=== PATIENT | male | born 1960 | race Two or more races ===

== ENCOUNTER 2021-03-18 09:50 | Outpatient (CLI) | payer BC ==
[~2021-03-18] VITALS: Ht 185.4 cm; Wt 93.0 kg
[2021-03-18] MEDS ORDERED: FA/M1TAB PO (10:28)
[2021-03-18] MEDS ORDERED: CHOL400T57 PO (10:28)
[2021-03-18] MEDS ORDERED: ASCO-283 PO (10:28)
[2021-03-18] MEDS ORDERED: [UNRECOGNIZED DRUG - OTHER] PO (10:28)
[2021-03-18] MEDS ORDERED: CETI-194 PO (10:28)
[2021-03-18] MEDS ORDERED: LOSA50TA3 PO (10:28)
[2021-03-18] MEDS ORDERED: OMEG10006 PO (10:28)
[2021-03-18] MEDS ORDERED: ATOR40TA PO (10:28)
[2021-03-18] MEDS ORDERED: LORA10TA7 PO (10:28)
[2021-03-18] MEDS ORDERED: VITA-268 PO (10:28)
[2021-03-18 10:34] LABS: BASOPHILS # (AUTO) 0.1 X10'3 (0-0.2); BASOPHILS % (AUTO) 1.2 % (0-1); EOSINOPHILS # (AUTO) 0.1 X10'3 (0-0.9); EOSINOPHILS % (AUTO) 2.7 % (0-6); LYMPHOCYTES # (AUTO) 0.9 X10'3 (1.1-4.8); LYMPHOCYTES % (AUTO) 19.7 % (21-51); MEAN CORPUSCULAR HEMOGLOBIN 30.4 PG (27.0-31.0); MEAN CORPUSCULAR HGB CONC 33.6 g/dL (33.0-36.5); MEAN CORPUSCULAR VOLUME 90.2 FL (78-98); MEAN PLATELET VOLUME 8.1 FL (7.4-10.4); MONOCYTES # (AUTO) 1.1 X10'3 (0-0.9); MONOCYTES % (AUTO) 23.6 % (2-12); NEUTROPHILS # (AUTO) 2.4 X10'3 (1.8-7.7); NEUTROPHILS % (AUTO) 52.8 % (42-75); PRE OP HEMATOCRIT 44.9 % (42.0-52.0); PRE OP HEMOGLOBIN 15.1 g/dL (14.0-17.9); PRE OP PLATELET COUNT 198 X10'3 (140-440); RED BLOOD COUNT 4.98 X10'6 (4.70-6.10); RED CELL DISTRIBUTION WIDTH 13.1 % (11.5-14.5)
[2021-03-18 10:47] LABS: PRE OP PROTIME 10.6 SECONDS (9.0-12.0)
[2021-03-18 10:49] LABS: ALBUMIN/GLOBULIN RATIO 1.1 (1.1-1.5); ALKALINE PHOSPHATASE 88 IU/L (46-116); BLOOD UREA NITROGEN 18 MG/DL (7-18); BUN/CREATININE RATIO 17.5 (5.4-32.0); CALCIUM 8.4 MG/DL (8.5-10.1); CHLORIDE 105 MMOL/L (99-107); CREATININE 1.03 MG/DL (0.60-1.10); PRE OP ALT 37 U/L (30-65); PRE OP ANION GAP 7 (8-16); PRE OP AST 26 U/L (10-37); PRE OP BILIRUB, TOTAL 0.4 MG/DL (0.0-1.0); PRE OP GLUCOSE 92 MG/DL (70-104); PRE OP POTASSIUM 4.1 MMOL/L (3.4-5.1); PRE OP SODIUM 142 MMOL/L (135-145); TOTAL CARBON DIOXIDE 29.6 MMOL/L (24-32); TOTAL PROTEIN 7.7 G/DL (6.4-8.2); eGFR 74 ML/MIN
[2021-03-18 10:55] LABS: LARGE PLATELETS FEW; PLATELET ESTIMATE NORMAL; TOTAL CELLS COUNTED 100
[2021-03-23] MEDS ORDERED: ringers solution, lacted 1,000 ML IV SCH (05:00)
[2021-03-23] MEDS ORDERED: diazepam 5mg tablet PO PRN (05:30)
[2021-03-23] MEDS ORDERED: famotidine 20mg tablet PO ONE (05:30)
[2021-03-23] MEDS ORDERED: oxymetazoline 15 ML nasal spray NS PRN (05:30)
== END 2021-03-18 23:59 | disposition home or self-care (01) ==
LOC: PRE-OP 09:50 → EDSTATUS 03-23 08:00
PROVIDERS: ATTEND Otolaryngology
DX: Z01.818 Encounter for other preprocedural examination (principal); J34.89 Other specified disorders of nose and nasal sinuses; J34.3 Hypertrophy of nasal turbinates; I10 Essential (primary) hypertension; Z20.822 Contact with and (suspected) exposure to COVID-19; Z72.89 Other problems related to lifestyle; Z79.899 Other long term (current) drug therapy; Z98.890 Other specified postprocedural states; Z79.01 Long term (current) use of anticoagulants
CPT/HCPCS: 36415; 80053; 85025; 85576; 85610; 85730; 93005; U0003; U0005; 85007; J7120

== ENCOUNTER 2021-04-27 09:07 | Day surgery (SDC) | payer BC ==
[2021-04-22 11:05] LABS: BASOPHILS # (AUTO) 0.1 X10'3 (0-0.2); EOSINOPHILS # (AUTO) 0.2 X10'3 (0-0.9); EOSINOPHILS % (AUTO) 3.5 % (0-6); LYMPHOCYTES # (AUTO) 1.5 X10'3 (1.1-4.8); NEUTROPHILS # (AUTO) 4.3 X10'3 (1.8-7.7)
[2021-04-22 11:09] LABS: BASOPHILS % (AUTO) 1.2 % (0-1); LYMPHOCYTES % (AUTO) 21.9 % (21-51); MEAN CORPUSCULAR HEMOGLOBIN 30.2 PG (27.0-31.0); MEAN CORPUSCULAR HGB CONC 34.1 g/dL (33.0-36.5); MEAN CORPUSCULAR VOLUME 88.5 FL (78-98); MEAN PLATELET VOLUME 9.2 FL (7.4-10.4); MONOCYTES # (AUTO) 0.8 X10'3 (0-0.9); MONOCYTES % (AUTO) 11.6 % (2-12); NEUTROPHILS % (AUTO) 61.8 % (42-75); PRE OP PLATELET COUNT 201 X10'3 (140-440); RED BLOOD COUNT 4.97 X10'6 (4.70-6.10); RED CELL DISTRIBUTION WIDTH 13.1 % (11.5-14.5)
[2021-04-22 11:12] LABS: PRE OP PROTIME 10.4 SECONDS (9.0-12.0)
[2021-04-22 11:16] LABS: ALBUMIN 3.8 G/DL (3.4-5.0); ALKALINE PHOSPHATASE 99 IU/L (46-116); BLOOD UREA NITROGEN 15 MG/DL (7-18); CALCIUM 8.4 MG/DL (8.5-10.1); CHLORIDE 107 MMOL/L (99-107); CREATININE 0.94 MG/DL (0.60-1.10); PRE OP ALT 71 U/L (30-65); PRE OP ANION GAP 10 (8-16); PRE OP AST 45 U/L (10-37); PRE OP BILIRUB, TOTAL 0.3 MG/DL (0.0-1.0); PRE OP GLUCOSE 96 MG/DL (70-104); PRE OP POTASSIUM 4.3 MMOL/L (3.4-5.1); PRE OP SODIUM 143 MMOL/L (135-145); TOTAL CARBON DIOXIDE 26.4 MMOL/L (24-32); TOTAL PROTEIN 7.6 G/DL (6.4-8.2); eGFR 82 ML/MIN
[~2021-04-27] VITALS: Ht 185.4 cm; Wt 91.5 kg
[2021-04-27] VITALS (7 sets, daily range): BP systolic 147–171; BP diastolic 80–90
[~2021-04-27 09:07] MED LIST: ASCO-283 PO; ATOR40TA PO; CETI-194 PO; CHOL400T57 PO; FA/M1TAB PO; LIDOCAINE 1%/EPI 1:100,000 inj. 10 ML multi-dose vial ONE; LORA10TA7 PO; LOSA50TA3 PO; OMEG10006 PO; VITA-268 PO; [UNRECOGNIZED DRUG - OTHER] PO; cefTAZidime 1gm inj ONE; cocaine 4% topical solution 4ml bottle ONE; diazepam 5mg tablet PO PRN; famotidine 20mg tablet PO ONE; methylPREDNISolone acetate 80mg/ml inj**IM only ONE; mupirocin 2% ointment 22GM ONE; oxymetazoline 15 ML nasal spray NS ONE; ringers solution, lacted 1,000 ML IV SCH
[2021-04-27] MEDS ORDERED: morphine 2 MG/ML inj. syringe IV PRN (09:40)
[2021-04-27] MEDS ORDERED: hydrALAZINE 20mg/ml inj. IV PRN (09:40)
[2021-04-27] MEDS ORDERED: ondansetron/PF 4mg/2ml inj IV PRN (09:40)
[2021-04-27] MEDS ORDERED: labetalol 20mg/4ml (5mg/ml) syringe IV PRN (09:40)
[2021-04-27] MEDS ORDERED: morphine 4 MG/ML inj SYRINge IV PRN (09:40)
[2021-04-27] MEDS ORDERED: ringers solution, lacted 1,000 ML IV SCH (09:40)
[2021-04-27] MEDS ORDERED: fentaNYL/PF 50MCG/1 ML 2ML syringe IV PRN ×2 (09:40)
[2021-04-27] MEDS: oxymetazoline 15 ML nasal spray NS PRN ×2 (09:58→12:01)
[2021-04-27] MEDS ORDERED: fentaNYL/PF 50MCG/1 ML 2ML syringe ONE (11:26)
[2021-04-27] MEDS ORDERED: LIDOcaine 2% (20mg/ml) 5ml vial ONE (11:26)
[2021-04-27] MEDS ORDERED: propofol inj 20 ML IV ONE (11:26)
[2021-04-27] MEDS ORDERED: midazolam 1 mg/ML 2ml injection ONE (11:26)
[2021-04-27] MEDS ORDERED: sevoflurane 250ml liquid IH ONE (11:30)
[2021-04-27] MEDS ORDERED: ondansetron/PF 4mg/2ml inj ONE (11:43)
--- NOTE | 2021-04-27 12:55 | NUR ---
ADMITTED TO PACU FROM OR ACCOMPANIED BY ANESTHESIA. INTIAL PHYSICAL ASSESSMENT DONE AND RECORDED. REPORT RECEIVED FROM ANESTHESIA.
[2021-04-27] MEDS ORDERED: salt irrigation nasal spray 45 ML SPRAY NS PRN (13:20)
--- NOTE | 2021-04-27 14:00 | NUR ---
DISCHARGE CRITERIA MET, DISCHARGE INSTRUCTIONS GIVEN, DEMONSTRATES VERBAL UNDERSTANDING. DISCHARGED HOME IN GOOD CONDITION.
== END 2021-04-27 14:00 | disposition home or self-care (01) ==
LOC: PAS 09:07
PROVIDERS: ATTEND Otolaryngology
DX: J34.2 Deviated nasal septum (principal); J34.3 Hypertrophy of nasal turbinates; I10 Essential (primary) hypertension; Z79.899 Other long term (current) drug therapy; Z79.01 Long term (current) use of anticoagulants; Z98.890 Other specified postprocedural states
CPT/HCPCS: 30140; 30520; 36415; 80053; 82948; 85025; 85576; 85610; 85730; A6402; C9250; J0713; J1040; J2001; J2250; J2405; J2704; J3010; Z7506; Z7508; Z7512; A4618; A7000; J7120

== ENCOUNTER 2024-04-01 10:54 | Outpatient (CLI) | payer OTHER ==
[~2024-04-01 10:54] MED LIST changes: -LIDOCAINE 1%/EPI 1:100,000 inj. 10 ML multi-dose vial ONE; +LOSA-416 PO; -LOSA50TA3 PO; -cefTAZidime 1gm inj ONE; -cocaine 4% topical solution 4ml bottle ONE; -diazepam 5mg tablet PO PRN; -famotidine 20mg tablet PO ONE; -methylPREDNISolone acetate 80mg/ml inj**IM only ONE; -mupirocin 2% ointment 22GM ONE; -oxymetazoline 15 ML nasal spray NS ONE; -ringers solution, lacted 1,000 ML IV SCH
== END 2024-04-01 23:59 | disposition home or self-care (01) ==
LOC: MRI02 10:54
PROVIDERS: ATTEND Family Medicine
DX: S39.92XA Unspecified injury of lower back, initial encounter (principal); M43.16 Spondylolisthesis, lumbar region; M47.816 Spondylosis without myelopathy or radiculopathy, lumbar region; M48.061 Spinal stenosis, lumbar region without neurogenic claudication; M51.36 Other intervertebral disc degeneration, lumbar region; X58.XXXA Exposure to other specified factors, initial encounter; Y93.89 Activity, other specified; Y92.89 Other specified places as the place of occurrence of the external cause; Y99.8 Other external cause status
CPT/HCPCS: 72148

== ENCOUNTER 2024-04-22 09:05 | Emergency (ER) | payer BC, OTHER ==
[~2024-04-22] VITALS: Ht 185.4 cm; Wt 94.5 kg
[2024-04-22] MEDS: dexamethasone sod phosphate 10mg/ml inj IM STA (10:36)
[2024-04-22] MEDS: ketorolac trometh 30MG/ML vial 30 MG/ML VIAL IM ONE (10:37)
[2024-04-22] MEDS ORDERED: PRED20TA PO (10:55)
[2024-04-22 11:07] VITALS: BP 133/84; PULSE 64; TEMP 98; O2SAT 98
[2024-04-22 11:09] VITALS: RESP 16
== END 2024-04-22 11:09 | disposition home or self-care (01) ==
LOC: ER 09:05
DX: M76.62 Achilles tendinitis, left leg (principal); Z79.899 Other long term (current) drug therapy
CPT/HCPCS: 73610; 96372; 99284; J1100; J1885; L4360